=== PATIENT | female | born 1960 | race Two or more races ===

== ENCOUNTER → 2019-03-13 08:18 | Outpatient (CLI) | payer OTHER, BC | END | disposition home or self-care (01) | LOC: LAB 08:18 | DX: E78.2 Mixed hyperlipidemia (principal); R00.2 Palpitations; I11.9 Hypertensive heart disease without heart failure; E11.9 Type 2 diabetes mellitus without complications; E03.8 Other specified hypothyroidism ==

== ENCOUNTER 2019-03-13 09:50 | Outpatient (CLI) | payer OTHER, BC | END 2019-03-13 15:01 | disposition home or self-care (01) | LOC: MAMO-SONO 09:50 | DX: Z12.31 Encounter for screening mammogram for malignant neoplasm of breast (principal); N64.4 Mastodynia ==

== ENCOUNTER 2019-03-14 11:39 | Outpatient (CLI) | payer OTHER, BC | END 2019-03-14 14:42 | disposition home or self-care (01) | LOC: SONOGRAMA 11:39 | DX: E04.8 Other specified nontoxic goiter (principal) ==

== ENCOUNTER → 2019-08-31 10:23 | Outpatient (CLI) | payer OTHER, BC | END | disposition home or self-care (01) | LOC: LAB 10:23 | DX: E78.2 Mixed hyperlipidemia (principal) ==

== ENCOUNTER 2020-02-26 09:49 | Outpatient (CLI) | payer OTHER, BC | END 2020-02-26 09:54 | disposition home or self-care (01) | LOC: LAB 09:49 | DX: R00.2 Palpitations (principal); E11.9 Type 2 diabetes mellitus without complications; I11.9 Hypertensive heart disease without heart failure; E78.2 Mixed hyperlipidemia ==

== ENCOUNTER 2020-02-27 12:15 | Outpatient (CLI) | payer OTHER, BC | END 2020-02-27 12:21 | disposition home or self-care (01) | LOC: LAB 12:15 | DX: R00.2 Palpitations (principal); I11.9 Hypertensive heart disease without heart failure; E11.9 Type 2 diabetes mellitus without complications; E78.2 Mixed hyperlipidemia ==

== ENCOUNTER 2020-04-16 09:26 | Outpatient (CLI) | payer OTHER, BC | END 2020-04-16 09:30 | disposition home or self-care (01) | LOC: LAB 09:26 | PROVIDERS: ATTEND General Practice | DX: E03.8 Other specified hypothyroidism (principal); E55.9 Vitamin D deficiency, unspecified; E78.00 Pure hypercholesterolemia, unspecified; D50.8 Other iron deficiency anemias; E56.8 Deficiency of other vitamins; E63.8 Other specified nutritional deficiencies; E11.9 Type 2 diabetes mellitus without complications; R53.81 Other malaise; R88.8 Abnormal findings in other body fluids and substances; N39.0 Urinary tract infection, site not specified ==

== ENCOUNTER → 2020-05-30 10:51 | Outpatient (CLI) | payer OTHER, BC | END | disposition home or self-care (01) | LOC: LAB 10:51 | PROVIDERS: ATTEND General Practice | DX: E03.8 Other specified hypothyroidism (principal); E78.00 Pure hypercholesterolemia, unspecified ==

== ENCOUNTER 2020-11-03 09:44 | Outpatient (CLI) | payer OTHER, BC | END 2020-11-03 09:53 | disposition home or self-care (01) | LOC: LAB 09:44 | DX: E11.9 Type 2 diabetes mellitus without complications (principal); R00.2 Palpitations; E78.2 Mixed hyperlipidemia ==

== ENCOUNTER 2020-11-20 10:02 | Outpatient (CLI) | payer OTHER | END 2020-11-20 10:36 | disposition home or self-care (01) | LOC: MAMO-SONO 10:02 | PROVIDERS: ATTEND Obstetrics & Gynecology | DX: R09.81 Nasal congestion (principal); R63.0 Anorexia; E03.8 Other specified hypothyroidism; N60.21 Fibroadenosis of right breast; N60.22 Fibroadenosis of left breast ==

== ENCOUNTER → 2021-03-03 09:27 | Outpatient (CLI) | payer OTHER ==
[~2021-03-03 09:27] MED LIST: ARMOUR THYROID60 M1; INTESTINEX680 M1 PO; MACROBID 100 M100 MG PO; PROGESTERONE200 MG; [UNRECOGNIZED DRUG - REMARK]
== END | disposition home or self-care (01) ==
LOC: LAB 09:27
PROVIDERS: ATTEND Obstetrics & Gynecology
DX: N39.0 Urinary tract infection, site not specified (principal); I11.9 Hypertensive heart disease without heart failure; E78.3 Hyperchylomicronemia; E07.89 Other specified disorders of thyroid; E55.9 Vitamin D deficiency, unspecified; E11.9 Type 2 diabetes mellitus without complications

== ENCOUNTER 2021-04-17 15:24 | Outpatient (CLI) | payer OTHER | END 2021-04-17 15:48 | disposition home or self-care (01) | LOC: RAD 15:24 | PROVIDERS: ATTEND Chiropractor | DX: M77.31 Calcaneal spur, right foot (principal); M25.59 Pain in other specified joint ==

== ENCOUNTER 2021-06-11 18:25 | Emergency (ER) | payer OTHER ==
[~2021-06-11] VITALS: Ht 170.2 cm; Wt 93.0 kg
[2021-06-11] MEDS ORDERED: ARMOUR THYROID60 M1 (18:54)
[2021-06-11] MEDS ORDERED: PROGESTERONE200 MG (18:54)
[2021-06-11] MEDS ORDERED: [UNRECOGNIZED DRUG - REMARK] (18:54)
[2021-06-11] MEDS ORDERED: MACROBID 100 M100 MG PO (22:45)
[2021-06-11] MEDS ORDERED: INTESTINEX680 M1 PO (22:45)
== END 2021-06-11 23:39 | disposition home or self-care (01) ==
LOC: ER 18:25
DX: N39.0 Urinary tract infection, site not specified (principal); K52.89 Other specified noninfective gastroenteritis and colitis

== ENCOUNTER 2021-06-17 08:56 | Outpatient (CLI) | payer OTHER | END 2021-06-17 09:05 | disposition home or self-care (01) | LOC: TOM 08:56 | PROVIDERS: ATTEND Internal Medicine Gastroenterology | DX: K57.90 Diverticulosis of intestine, part unspecified, without perforation or abscess without bleeding (principal); R10.33 Periumbilical pain; K52.89 Other specified noninfective gastroenteritis and colitis ==

== ENCOUNTER → 2021-06-17 10:45 | Outpatient (CLI) | payer OTHER | END | disposition home or self-care (01) | LOC: LAB 10:45 | PROVIDERS: ATTEND Internal Medicine Gastroenterology | DX: I10 Essential (primary) hypertension (principal); N39.0 Urinary tract infection, site not specified; B99.8 Other infectious disease; R19.5 Other fecal abnormalities ==

== ENCOUNTER 2021-08-12 09:09 | Outpatient (CLI) | payer OTHER | END 2021-08-12 09:10 | disposition home or self-care (01) | LOC: LAB 09:09 | DX: J11.1 Influenza due to unidentified influenza virus with other respiratory manifestations (principal); D64.89 Other specified anemias ==

== ENCOUNTER 2021-10-30 09:09 | Outpatient (CLI) | payer OTHER | END 2021-10-30 09:20 | disposition home or self-care (01) | LOC: LAB 09:09 | PROVIDERS: ATTEND Obstetrics & Gynecology | DX: R00.2 Palpitations (principal); I11.9 Hypertensive heart disease without heart failure; E11.9 Type 2 diabetes mellitus without complications; E78.2 Mixed hyperlipidemia; N39.0 Urinary tract infection, site not specified; E78.3 Hyperchylomicronemia; E07.89 Other specified disorders of thyroid; E55.9 Vitamin D deficiency, unspecified; N95.1 Menopausal and female climacteric states; L68.0 Hirsutism ==

== ENCOUNTER 2021-11-09 11:14 | Outpatient (CLI) | payer OTHER | END 2021-11-10 14:55 | disposition home or self-care (01) | LOC: MAMO-SONO 11:14 | PROVIDERS: ATTEND Obstetrics & Gynecology | DX: N60.81 Other benign mammary dysplasias of right breast (principal); N60.09 Solitary cyst of unspecified breast ==

== ENCOUNTER 2021-12-29 13:41 | Outpatient (CLI) | payer OTHER | END 2021-12-29 13:42 | disposition home or self-care (01) | LOC: NUCLEAR 13:41 | PROVIDERS: ATTEND Obstetrics & Gynecology | DX: M81.0 Age-related osteoporosis without current pathological fracture (principal) ==

== ENCOUNTER 2022-04-23 07:24 | Outpatient (CLI) | payer OTHER | END 2022-04-23 07:25 | disposition home or self-care (01) | LOC: LAB 07:24 | DX: E88.81 Metabolic syndrome and other insulin resistance (principal); E03.9 Hypothyroidism, unspecified; E04.0 Nontoxic diffuse goiter; Z13.0 Encounter for screening for diseases of the blood and blood-forming organs and certain disorders involving the immune mechanism; D55.9 Anemia due to enzyme disorder, unspecified; E66.9 Obesity, unspecified; R73.09 Other abnormal glucose; E78.00 Pure hypercholesterolemia, unspecified; F51.01 Primary insomnia; M19.90 Unspecified osteoarthritis, unspecified site; L68.0 Hirsutism; R89.1 Abnormal level of hormones in specimens from other organs, systems and tissues; N95.1 Menopausal and female climacteric states; R68.82 Decreased libido; E65 Localized adiposity; R94.5 Abnormal results of liver function studies; N39.0 Urinary tract infection, site not specified; N95.9 Unspecified menopausal and perimenopausal disorder; E78.2 Mixed hyperlipidemia ==

== ENCOUNTER 2022-04-23 08:16 | Outpatient (CLI) | payer OTHER | END 2022-04-23 08:26 | disposition home or self-care (01) | LOC: SONOGRAMA 08:16 | PROVIDERS: ATTEND Obstetrics & Gynecology | DX: R10.2 Pelvic and perineal pain (principal); R19.00 Intra-abdominal and pelvic swelling, mass and lump, unspecified site ==

== ENCOUNTER 2022-11-12 10:37 | Outpatient (CLI) | payer OTHER | END 2022-11-12 10:48 | disposition home or self-care (01) | LOC: MRI 10:37 | PROVIDERS: ATTEND Internal Medicine Endocrinology, Diabetes & Metabolism | DX: D35.2 Benign neoplasm of pituitary gland (principal); R43.0 Anosmia | CPT/HCPCS: 70543; 70551 ==

== ENCOUNTER → 2022-11-25 13:28 | Outpatient (CLI) | payer OTHER | END | disposition home or self-care (01) | LOC: LAB 13:28 | PROVIDERS: ATTEND Specialist | DX: L71.9 Rosacea, unspecified (principal) ==

== ENCOUNTER → 2022-12-17 06:56 | Outpatient (CLI) | payer OTHER | END | disposition home or self-care (01) | LOC: LAB 06:56 | PROVIDERS: ATTEND General Practice | DX: E88.81 Metabolic syndrome and other insulin resistance (principal); E55.9 Vitamin D deficiency, unspecified ==